=== PATIENT | male | born 1945 | race Caucasian/White ===

== ENCOUNTER 2017-10-30 00:15 | Emergency (ER) | payer MEDICARE, OTHER ==
[~2017-10-30] VITALS: Ht 177.8 cm; Wt 97.9 kg
[~2017-10-30 00:15] MED LIST: ACLI400A2 INH; AMOX1TAB64 PO; BENZ-17 PO; CLOP75TA52 PO; FLUT1DIS3 INH; HYDR-3237 PO; HYDR12.53 PO; HYDR25TA6 PO; IBUP-11 PO; ISOS10TA2 PO; ISOS60TA36 PO; LISI40TA PO; LISI5TAB7 PO; METO50TA82 PO; NITR0.4T28 SL; OMEP-110 PO; OMEP40CA6 PO; POTA10TA11 PO; POTA25TA4 PO; POTA40LI3 PO; PRED20TA PO; SIMV5TAB5 PO; SIMV80TA3 PO
[2017-10-30] MEDS ORDERED: SODIUM CHLORIDE FLUSH 10ML SYR IVF ONE (00:30)
[2017-10-30 00:40] LABS: BASOPHILS # (AUTO) 0.04 x10^3/uL (0-0.1); BASOPHILS % (AUTO) 1 % (0-1); EOSINOPHILS # (AUTO) 0.15 x10^3/uL (0-0.4); EOSINOPHILS % (AUTO) 2 % (1-7); LYMPHOCYTES # (AUTO) 2.14 x10^3/uL (1-3.4); LYMPHOCYTES % (AUTO) 25 % (22-44); MD NO; MEAN CORPUSCULAR HEMOGLOBIN 29.3 pg (27.5-34.5); MEAN CORPUSCULAR HGB CONC 33.6 g/dL (33.2-36.2); MEAN CORPUSCULAR VOLUME 87.3 fL (81-97); MEAN PLATELET VOLUME 9.9 fL (7.4-10.4); MONOCYTES # (AUTO) 1.05 x10^3/uL (0.2-0.8); MONOCYTES % (AUTO) 12 % (2-9); NEUTROPHILS # (AUTO) 5.13 x10^3/uL (1.8-6.8); NEUTROPHILS % (AUTO) 60 % (42-75); PLATELET COUNT 150 x10^3/uL (130-400); RED BLOOD COUNT 5.08 x10^6/uL (4.38-5.82)
[2017-10-30 00:45] LABS: INTERNATIONAL NORMALIZED RATIO 0.92 (0.93-1.1); PROTHROMBIN TIME 9.6 Seconds (9.6-11.5)
[2017-10-30 00:48] LABS: ALANINE AMINOTRANSFERASE 31 U/L (12-78); ALBUMIN 3.9 g/dL (3.4-5.0); ANION GAP 7 mmol/L (5-15); CALCIUM 8.3 mg/dL (8.5-10.1); CHLORIDE 108 mmol/L (98-107); CREATININE 1.07 mg/dL (0.7-1.3)
[2017-10-30] MEDS ORDERED: methylPREDNISolone SOD SUCC 125 MG/2 ML ONE (00:51)
[2017-10-30 00:53] LABS: ALKALINE PHOSPHATASE 85 U/L (45-117); BILIRUBIN,TOTAL 0.5 mg/dL (0.2-1.0); TOTAL PROTEIN 6.8 g/dL (6.4-8.2); TROPONIN I < 0.015 ng/mL (0.000-0.045)
[2017-10-30] MEDS ORDERED: ALBUTEROL/IPRATROPIUM 2.5MG/0.5MG, 3 ML NPPB ONE (01:00)
[2017-10-30] MEDS ORDERED: methylPREDNISolone SOD SUCC 125 MG/2 ML IVPush SCH (01:00)
[2017-10-30] MEDS ORDERED: ALBUTEROL SULFATE 2.5 MG/3 ML NPPB ONE ×2 (01:00→02:30)
[2017-10-30] MEDS ORDERED: ALBUTEROL/IPRATROPIUM 2.5MG/0.5MG, 3 ML ONE (01:02)
[2017-10-30] MEDS ORDERED: ALBUTEROL SULFATE 2.5 MG/3 ML ONE (02:18)
[2017-10-30] MEDS ORDERED: AZITHROMYCIN 500 MG in SODIUM CHLORIDE 0.9% 250 ML IV ONE (02:30)
[2017-10-30 04:16] VITALS: BP 157/74
== END 2017-10-30 04:18 | disposition short-term general hospital (02) ==
LOC: ED 00:24
DX: J44.1 Chronic obstructive pulmonary disease with (acute) exacerbation (principal); I10 Essential (primary) hypertension; Z85.118 Personal history of other malignant neoplasm of bronchus and lung; Z87.891 Personal history of nicotine dependence; Z88.8 Allergy status to other drugs, medicaments and biological substances
CPT/HCPCS: 36415; 71045; 80053; 84484; 85025; 85610; 85730; 93005; 94640; 96365; 96375; 99285; J0456; J2930; J7050; J7613; J7620

== ENCOUNTER 2018-02-18 14:32 | Emergency (ER) | payer OTHER ==
[~2018-02-18] VITALS: Ht 177.8 cm; Wt 95.0 kg
[2018-02-18] MEDS ORDERED: LORazepam 2 MG/ML, 1ML ONE (14:36)
[2018-02-18] MEDS ORDERED: ALBUTEROL SULFATE 2.5 MG/3 ML ONE (14:49)
[2018-02-18] MEDS ORDERED: LORazepam 2 MG/ML, 1ML IVP ONE (15:00)
[2018-02-18] MEDS ORDERED: SODIUM CHLORIDE FLUSH 10ML SYR IVF ONE (15:00)
[2018-02-18] MEDS ORDERED: ALBU18HF INH (15:07)
[2018-02-18] MEDS ORDERED: IBUP200T49 PO (15:07)
[2018-02-18] MEDS ORDERED: ASPI500P3 PO (15:07)
[2018-02-18] MEDS ORDERED: BUDE10.2 INH (15:07)
[2018-02-18 15:30] LABS: BASOPHILS # (AUTO) 0.04 x10^3/uL (0-0.1); BASOPHILS % (AUTO) 1 % (0-1); EOSINOPHILS # (AUTO) 0.14 x10^3/uL (0-0.4); EOSINOPHILS % (AUTO) 2 % (1-7); LYMPHOCYTES # (AUTO) 2.99 x10^3/uL (1-3.4); LYMPHOCYTES % (AUTO) 32 % (22-44); MD NO; MEAN CORPUSCULAR HEMOGLOBIN 29.8 pg (27.5-34.5); MEAN CORPUSCULAR HGB CONC 33.2 g/dL (33.2-36.2); MEAN CORPUSCULAR VOLUME 89.8 fL (81-97); MEAN PLATELET VOLUME 10.5 fL (7.4-10.4); MONOCYTES # (AUTO) 1.05 x10^3/uL (0.2-0.8); MONOCYTES % (AUTO) 11 % (2-9); NEUTROPHILS # (AUTO) 5.06 x10^3/uL (1.8-6.8); NEUTROPHILS % (AUTO) 55 % (42-75); PLATELET COUNT 166 x10^3/uL (130-400); RED BLOOD COUNT 5.08 x10^6/uL (4.38-5.82)
[2018-02-18 15:33] LABS: INTERNATIONAL NORMALIZED RATIO 0.96 (0.93-1.1)
[2018-02-18 15:39] LABS: ALBUMIN 4.3 g/dL (3.4-5.0); ANION GAP 10 mmol/L (5-15); CALCIUM 8.7 mg/dL (8.5-10.1); CHLORIDE 106 mmol/L (98-107); CREATININE 1.24 mg/dL (0.7-1.3)
[2018-02-18 17:20] VITALS: BP 121/59
== END 2018-02-18 17:23 | disposition home or self-care (01) ==
LOC: ED 17:00
DX: R09.89 Other specified symptoms and signs involving the circulatory and respiratory systems (principal); I11.9 Hypertensive heart disease without heart failure; I25.10 Atherosclerotic heart disease of native coronary artery without angina pectoris; Z85.118 Personal history of other malignant neoplasm of bronchus and lung; Z95.5 Presence of coronary angioplasty implant and graft
CPT/HCPCS: 36415; 71045; 71250; 80048; 82040; 83880; 85025; 85610; 93005; 94640; 96374; 99285; J2060

== ENCOUNTER 2018-12-08 00:06 | Inpatient (IN) | payer OTHER ==
[~2018-12-08] VITALS: Ht 177.8 cm; Wt 93.8 kg
[~2018-12-08 00:06] MED LIST changes: +ALBU18HF INH; +ASPI500P3 PO; +BUDE10.2 INH; +HYDR12.517 PO; -HYDR12.53 PO; +IBUP200T49 PO; -POTA40LI3 PO; +POTA40LI7 PO; +SIMV5TAB14 PO; -SIMV5TAB5 PO; +SIMV80TA18 PO; -SIMV80TA3 PO
[2018-12-08] MEDS ORDERED: MORPHINE SULFATE 4 MG/ML, 1ML ONE ×2 (00:23→00:46)
[2018-12-08] MEDS: MORPHINE SULFATE 4 MG/ML, 1ML IVPush PRN ×2 (00:27→00:51)
[2018-12-08] MEDS ORDERED: NITROGLYCERIN SINGLE TAB 0.4 MG SL PRN (00:30)
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
[2018-12-08 00:44] LABS: BASOPHILS # (AUTO) 0.03 x10^3/uL (0-0.1); BASOPHILS % (AUTO) 1 % (0-1); EOSINOPHILS # (AUTO) 0.09 x10^3/uL (0-0.4); EOSINOPHILS % (AUTO) 1 % (1-7); LYMPHOCYTES # (AUTO) 1.23 x10^3/uL (1-3.4); LYMPHOCYTES % (AUTO) 16 % (22-44); MD NO; MEAN CORPUSCULAR HGB CONC 33.3 g/dL (33.2-36.2); MEAN CORPUSCULAR VOLUME 87.2 fL (81-97); MEAN PLATELET VOLUME 10.8 fL (7.4-10.4); MONOCYTES % (AUTO) 9 % (2-9); NEUTROPHILS # (AUTO) 5.47 x10^3/uL (1.8-6.8); NEUTROPHILS % (AUTO) 73 % (42-75); PLATELET COUNT 144 x10^3/uL (130-400); RED BLOOD COUNT 4.87 x10^6/uL (4.38-5.82); RED CELL DISTRIBUTION WIDTH 14.5 % (9.4-14.8)
[2018-12-08 00:54] LABS: ANION GAP 6 mmol/L (5-15); CALCIUM 8.3 mg/dL (8.5-10.1); CHLORIDE 110 mmol/L (98-107); INTERNATIONAL NORMALIZED RATIO 0.94 (0.93-1.1); PROTHROMBIN TIME 9.9 Seconds (9.6-11.5)
--- NOTE | 2018-12-08 00:56 | NUR ---
REPEAT EKG COMPLETED AND PRESENTED TO [facility]. PT. MEDICATED WITH 2ND DOSE OF MORPHINE FOR CONTINUED PAIN. AT THIS TIME PT. MORE CALM AND NO LONGER RESTLESS. EYES CLOSED. RESP EVEN AND NON-LABORED. REMAINS AT BS. CALL LIGHT IN REACH. ALL SAFETY MEASUES OBSERVED.
[2018-12-08 00:58] LABS: TROPONIN I 0.084 ng/mL (0.000-0.045)
[2018-12-08] MEDS ORDERED: PLEASE ENTER ACCURATE WEIGHT MC SCH (01:30)
--- NOTE | 2018-12-08 01:43 | NUR ---
[facility] AT TO EVAL PT. FOR ADMISSION.
[2018-12-08] MEDS ORDERED: ASPI-496 PO (01:52)
--- NOTE | 2018-12-08 01:59 | NUR ---
[facility] as [facility] patient and going to be admitted for a NSTEMI. Unable to [facility] as the [facility] is "at hospital saturation."
[2018-12-08] MEDS ORDERED: HEPARIN 5,000 UNITS/ML, 1ML IV PRN (02:00)
[2018-12-08] MEDS ORDERED: NITROGLYCERIN 0.4 MG BOTTLE (25 TABS) SL PRN ×2 (02:00→02:30)
[2018-12-08] MEDS ORDERED: HEPARIN 25,000 UNITS/500ML PMX 500 ML IV PRN (02:00)
[2018-12-08] MEDS ORDERED: HEPARIN 5,000 UNITS/ML, 1ML IV ONE (02:00)
--- NOTE | 2018-12-08 02:01 | NUR ---
SPOKE WITH [facility] IN PHARMACY TO VERIFY BOLUS FOR HEPARIN AND 4,000 UNITS AND RATE OF 18ML/HR FOR DRIP.
[2018-12-08] MEDS ORDERED: HEPARIN 5,000 UNITS/ML, 1ML ONE (02:03)
[2018-12-08] MEDS ORDERED: HEPARIN 25,000 UNITS/500ML PMX 500 ML ONE (02:03)
--- NOTE | 2018-12-08 02:22 | NUR ---
REPORT TO ALEKSANDR LLAMAS
[2018-12-08] MEDS ORDERED: NITROGLYCERIN 0.4 MG/SPRAY SL PRN (02:30)
[2018-12-08] MEDS ORDERED: ASPIRIN 325 MG TABLET EC PO ONE (02:30)
--- NOTE | 2018-12-08 02:38 | NUR ---
PT. AWAITING TRANSPORT TO FLOOR.
[2018-12-08 02:56] LABS: CHOLESTEROL, TOTAL 128 mg/dL (140-239); TRIGLYCERIDES 70 mg/dL (50-200); VLDL CHOLESTEROL 14 mg/dL (0-25)
[2018-12-08 02:58] LABS: CHOL/HDL RATIO 2.6; HDL CHOL % 38 % (26-37); HDL CHOLESTEROL (DIRECT) 49 mg/dL (40-60); LDL CHOLESTEROL,CALCULATED 65 mg/dL (54-169); LDL/HDL RATIO 1.3 (0.5-3.0)
[2018-12-08 02:59] LABS: TROPONIN I 0.366 ng/mL (0.000-0.045)
[2018-12-08 03:20] VITALS: BP 181/100
[2018-12-08] MEDS: ATORVASTATIN 40 MG TABLET PO SCH ×2 (03:54→20:20)
[2018-12-08 03:58] VITALS: BP 181/100
[2018-12-08 05:26] LABS: TROPONIN I 0.766 ng/mL (0.000-0.045)
[2018-12-08] MEDS ORDERED: METOPROLOL TARTRATE 25 MG TABLET ONE (05:37)
[2018-12-08 05:42] VITALS: BP 152/92
[2018-12-08 06:58] VITALS: BP 151/93
[2018-12-08] MEDS: ISOSORBIDE MONONITRATE ER 60 MG TABLET PO SCH (08:23)
[2018-12-08] MEDS: SODIUM CHLORIDE FLUSH 10ML SYR IVF SCH ×3 (08:24→20:24)
[2018-12-08] MEDS ORDERED: SODIUM CHLORIDE 0.9% IV ONE (08:56)
[2018-12-08] MEDS ORDERED: METOPROLOL TARTRATE 25 MG TABLET PO SCH ×2 (09:00→21:00)
[2018-12-08] MEDS: TEMPLATE NON-FORMULARY MED. (Budesonide/Formoterol Fumarate (Symbicort 160-4.5 Mcg Inhaler INH SCH (09:00)
[2018-12-08] MEDS: ALBUTEROL SULFATE INH SCH ×2 (09:00→10:05)
[2018-12-08 09:06] LABS: ALBUMIN 3.8 g/dL (3.4-5.0); ANION GAP 6 mmol/L (5-15); CALCIUM 8.4 mg/dL (8.5-10.1); CHLORIDE 113 mmol/L (98-107); CREATININE 1.04 mg/dL (0.7-1.3)
[2018-12-08] MEDS: DIGOXIN 0.125 MG TABLET PO SCH (10:57)
[2018-12-08] MEDS ORDERED: DEXTROSE 50%, 50ML SYRINGE IVPush PRN (12:30)
[2018-12-08] MEDS ORDERED: GLUCAGON 1 MG IM PRN (12:30)
[2018-12-08] MEDS ORDERED: DEXTROSE 4 GM TAB.CHEW PO PRN (12:30)
[2018-12-08] MEDS: PANTOPROZOLE 40MG TABLET PO SCH (13:33)
[2018-12-08] MEDS: INSULIN LISPRO 100 UNITS/ML, PEN SQ-INSULIN SCH ×3 (13:34→20:19)
[2018-12-08] MEDS ORDERED: VERAPAMIL 2.5 MG/ML, 2ML ONE (14:43)
[2018-12-08] MEDS ORDERED: BIVALIRUDIN 250 MG ONE (14:43)
[2018-12-08] MEDS ORDERED: FENTANYL PF 100 MCG/2ML ONE (14:43)
[2018-12-08] MEDS ORDERED: MIDAZOLAM 1 MG/ML, 5ML ONE (14:43)
[2018-12-08] MEDS ORDERED: LIDOCAINE 2%, 20ML ONE (14:44)
[2018-12-08] MEDS ORDERED: HEPARIN 1,000 UNITS/ML, 10ML ONE (14:44)
[2018-12-08] MEDS ORDERED: CLOPIDOGREL 300 MG TABLET ONE (15:50)
[2018-12-08] MEDS ORDERED: BIVALIRUDIN 250 MG in SODIUM CHLORIDE 0.9% 50 ML IV SCH (15:51)
[2018-12-08] MEDS ORDERED: SODIUM CHLORIDE 0.9% 1,000 ML IV SCH (15:51)
[2018-12-08 16:00] VITALS: BP 152/85
[2018-12-08] MEDS ORDERED: TIOT18CA INH (16:17)
[2018-12-08] MEDS ORDERED: POTA20TA14 PO (16:17)
[2018-12-08] MEDS ORDERED: METO25TA35 PO (16:17)
[2018-12-08] MEDS ORDERED: SIMV40TA3 PO (16:17)
[2018-12-08 19:18] VITALS: BP 136/78
[2018-12-08] MEDS ORDERED: METOPROLOL TARTRATE 50 MG TABLET PO SCH (21:00)
[2018-12-08] MEDS ORDERED: BUDESONIDE 0.5 MG/2 ML INHA INH SCH (21:00)
[2018-12-08] MEDS: ALBUTEROL/IPRATROPIUM 2.5MG/0.5MG, 3 ML NPPB SCH (21:36)
[2018-12-09 00:09] VITALS: BP_SYST 161; BP_SYST 173; BP_DIAS 100; BP_DIAS 98
[2018-12-09 01:40] VITALS: BP 138/86
[2018-12-09] MEDS: ALBUTEROL/IPRATROPIUM 2.5MG/0.5MG, 3 ML NPPB SCH ×2 (03:00→06:45)
[2018-12-09 05:28] LABS: CHLORIDE 111 mmol/L (98-107)
[2018-12-09 05:35] LABS: BASOPHILS # (AUTO) 0.03 x10^3/uL (0-0.1); BASOPHILS % (AUTO) 0 % (0-1); EOSINOPHILS % (AUTO) 3 % (1-7); LYMPHOCYTES # (AUTO) 1.58 x10^3/uL (1-3.4); LYMPHOCYTES % (AUTO) 19 % (22-44); MD NO; MEAN CORPUSCULAR HEMOGLOBIN 29.3 pg (27.5-34.5); MEAN CORPUSCULAR HGB CONC 33.9 g/dL (33.2-36.2); MEAN CORPUSCULAR VOLUME 86.4 fL (81-97); MEAN PLATELET VOLUME 10.5 fL (7.4-10.4); MONOCYTES # (AUTO) 0.78 x10^3/uL (0.2-0.8); MONOCYTES % (AUTO) 10 % (2-9); NEUTROPHILS # (AUTO) 5.55 x10^3/uL (1.8-6.8); NEUTROPHILS % (AUTO) 68 % (42-75); PLATELET COUNT 139 x10^3/uL (130-400); RED BLOOD COUNT 5.21 x10^6/uL (4.38-5.82); RED CELL DISTRIBUTION WIDTH 14.7 % (9.4-14.8)
[2018-12-09 05:36] LABS: ALANINE AMINOTRANSFERASE 26 U/L (12-78); ALBUMIN 3.9 g/dL (3.4-5.0); ALKALINE PHOSPHATASE 94 U/L (45-117); ANION GAP 6 mmol/L (5-15); BILIRUBIN,TOTAL 0.5 mg/dL (0.2-1.0); CALCIUM 8.7 mg/dL (8.5-10.1); CREATININE 0.88 mg/dL (0.7-1.3); TOTAL PROTEIN 6.8 g/dL (6.4-8.2)
[2018-12-09] MEDS ORDERED: ASPIRIN 325 MG TABLET EC PO SCH (06:00)
[2018-12-09] MEDS ORDERED: hydrALAzine 20 MG/ML, 1ML IV PRN (06:30)
[2018-12-09] MEDS: INSULIN LISPRO 100 UNITS/ML, PEN SQ-INSULIN SCH ×2 (07:00→11:00)
[2018-12-09 07:16] VITALS: BP 117/72
[2018-12-09] MEDS: DIGOXIN 0.125 MG TABLET PO SCH (08:22)
[2018-12-09] MEDS: PANTOPROZOLE 40MG TABLET PO SCH (08:22)
[2018-12-09] MEDS: SODIUM CHLORIDE FLUSH 10ML SYR IVF SCH ×2 (08:23)
[2018-12-09] MEDS: ISOSORBIDE MONONITRATE ER 60 MG TABLET PO SCH (08:23)
[2018-12-09] MEDS: TEMPLATE NON-FORMULARY MED. (Budesonide/Formoterol Fumarate (Symbicort 160-4.5 Mcg Inhaler INH SCH (08:23)
[2018-12-09] MEDS: ALBUTEROL SULFATE INH SCH (08:23)
[2018-12-09] MEDS ORDERED: METOPROLOL TARTRATE 25 MG TABLET PO SCH (09:00)
[2018-12-09] MEDS ORDERED: METOPROLOL TARTRATE 50 MG TABLET PO SCH (09:00)
[2018-12-09] MEDS ORDERED: CLOPIDOGREL 75 MG TABLET PO SCH (09:00)
[2018-12-09] MEDS ORDERED: LISINOPRIL 5 MG TABLET PO SCH (11:00)
[2018-12-09] MEDS ORDERED: DIGO125T PO (12:32)
[2018-12-09] MEDS ORDERED: CLOP75TA PO (12:32)
[2018-12-09] MEDS ORDERED: LISI5TAB7 PO (12:32)
== END 2018-12-09 14:30 | disposition home or self-care (01) | DRG 246 ==
LOC: ED 01:22 → EDIP 01:23 → ED 01:34 → 5SO 03:14 → DCLOUNGE 12-09 14:10
PROVIDERS: ADMIT Internal Medicine; ATTEND Internal Medicine
PROC: 027034Z Dilation of Coronary Artery, One Artery with Drug-eluting Intraluminal Device, Percutaneous Approach (ICD-10-PCS; principal; 2018-12-08)
PROC: 4A023N7 Measurement of Cardiac Sampling and Pressure, Left Heart, Percutaneous Approach (ICD-10-PCS; 2018-12-08)
PROC: B2111ZZ Fluoroscopy of Multiple Coronary Arteries using Low Osmolar Contrast (ICD-10-PCS; 2018-12-08)
PROC: B2151ZZ Fluoroscopy of Left Heart using Low Osmolar Contrast (ICD-10-PCS; 2018-12-08)
DX: I21.4 Non-ST elevation (NSTEMI) myocardial infarction (principal); J96.20 Acute and chronic respiratory failure, unspecified whether with hypoxia or hypercapnia; E11.9 Type 2 diabetes mellitus without complications; E78.5 Hyperlipidemia, unspecified; G31.84 Mild cognitive impairment of uncertain or unknown etiology; G40.909 Epilepsy, unspecified, not intractable, without status epilepticus; I10 Essential (primary) hypertension; I48.2 Chronic atrial fibrillation; I25.10 Atherosclerotic heart disease of native coronary artery without angina pectoris; J44.9 Chronic obstructive pulmonary disease, unspecified; I25.2 Old myocardial infarction; Z79.02 Long term (current) use of antithrombotics/antiplatelets; Z79.82 Long term (current) use of aspirin; Z79.899 Other long term (current) drug therapy; Z85.118 Personal history of other malignant neoplasm of bronchus and lung; Z87.891 Personal history of nicotine dependence; Z88.8 Allergy status to other drugs, medicaments and biological substances; Z95.5 Presence of coronary angioplasty implant and graft
CPT/HCPCS: 36415; 93458; 99285; C9600; J7620; J7626; 71045; 80048; 80053; 80061; 82040; 82962; 83880; 84484; 85025; 85520; 85610; 93005; 93306; 96365; 96375; 99156; 99157; C1769; C1894; G0378; J0583; J1644; J2250; J3010; J3490; C1725; C1874; C1887; J7030; Q9967